=== PATIENT | female | born 1995 | race Two or more races ===

== ENCOUNTER 2021-12-24 17:50 | Emergency (ER) | payer SELFPAY ==
[~2021-12-24] VITALS: Ht 157.5 cm; Wt 60.0 kg
[2021-12-24 18:00] VITALS: BP 118/82
[2021-12-24] MEDS ORDERED: ACETAMINOPHEN 325MG TABLET PO ONE (18:15)
[2021-12-24 18:31] LABS: BASOPHILS % 0.5 % (0.0-2.0); EOSINOPHILS % 0.2 % (0.0-5.0); HEMATOCRIT. 37.5 % (36.0-48.0); HEMOGLOBIN. 12.7 g/dL (12.0-16.0); LYMPHOCYTES % 22.7 % (20.0-50.0); MEAN CORPUSCULAR HEMOGLOBIN 30.9 pg (28.0-32.0); MEAN CORPUSCULAR VOLUME 91.3 fL (81.0-99.0); MEAN PLATELET VOLUME 7.8 fl (7.4-10.4); MONOCYTES % 5.7 % (2.0-8.0); NEUTROPHILS % 70.9 % (40.0-76.0); PLATELET 265 x1000/uL (130-400); RED BLOOD CELL COUNT 4.11 mill/uL (4.2-5.4); RED CELL DISTRIBUTION WIDTH 13.3 % (11.6-14.6)
[2021-12-24 18:40] LABS: CHLORIDE 106 mEq/L (98-107)
[2021-12-24 18:59] LABS: HCG SCREEN NEGATIVE
== END 2021-12-24 20:08 | disposition left against medical advice (07) ==
LOC: ER 17:50
DX: R10.12 Left upper quadrant pain (principal); R11.10 Vomiting, unspecified
CPT/HCPCS: 36415; 80053; 84703; 85025; 99283